=== PATIENT | female | born 1970 | race Caucasian/White ===

== ENCOUNTER 2022-07-20 11:54 | Inpatient (IN) ==
[2022-07-20] MEDS ORDERED: SODIUM CHLORIDE 0.9% 500 ML IV STA (12:28)
[2022-07-20] MEDS ORDERED: ONDANSETRON INJ 2 MG/ML 2 ML VIAL IV STA (12:28)
[2022-07-20] MEDS ORDERED: KETOROLAC TROMETHAMINE 15 MG/ML VIAL IV STA (12:28)
[2022-07-20 12:40] LABS: Basophils # (auto) 0.03 K/uL (0-0.2); Basophils % (auto) 0.3 %; Eosinophils # (auto) 0.29 K/uL (0-0.50); Hematocrit (blood only) 41.7 % (37.0-47.0); Hemoglobin 13.9 g/dl (12.0-16.0); Immature Granulocytes # (auto) 0.04 K/uL (0.01-0.20); Immature Granulocytes % (auto) 0.4 %; Lymphocytes % (auto) 36.2 %; Mean Corpuscular Hgb Conc 33.3 g/dL (32.0-36.0); Mean Corpuscular Volume 90.1 fL (80.0-100.0); Mean Platelet Volume 11.6 fL (9.4-12.4); Monocytes # (auto) 0.63 K/uL (0.11-0.59); Monocytes % (auto) 6.5 %; Neutrophils # (auto) 5.19 K/uL (1.40-6.50); Neutrophils % (auto) 53.6 %; Platelet Count 240 K/uL (130-400); RDW Coefficient of Variation 13.1 % (11.5-14.5); RDW Standard Deviation 42.9 fL (36.4-46.3); Red Blood Count 4.63 M/uL (4.20-5.40); White Blood Count 9.68 K/ul (4.8-10.8)
[2022-07-20 12:55] LABS: Albumin Level 4.5 gm/dl (3.4-5.0); Bilirubin,Total 0.3 mg/dl (0.2-1.0); Calcium 9.4 mg/dl (8.6-10.3); Potassium 3.8 mmol/L (3.5-5.1); Pregnancy Test, Serum Negative (Negative)
[2022-07-20 13:01] LABS: Albumin Globulin Ratio 1.3 (0.9-2); BUN Creatinine Ratio 16.7 (10-20); Creatinine Clr Calc Pharmacy 94.9 ml/min; Est GFR (African American) 113.2 ml/min; Est GFR (Non-African American) 97.7 ml/min; Globulin 3.5 gm/dl (2.5-4.0)
[2022-07-20 13:14] LABS: Appearance Urine Clear (Clear); Bacteria Urine Automated Negative (Negative); Bilirubin Urine Negative (Negative); Blood Urine 3+ (Negative); Color Urine Yellow; Epithelial Cell Urine Auto >30 /lpf (0-5); Glucose Urine UA Negative (Negative); Ketones Urine Negative (Negative); Leukocyte Esterase Urine Negative (Negative); Nitrite Urine Negative (Negative); Protein Urine 1+ (Negative); RBC Urine Automated >30 /hpf (0-4); Specific Gravity Urine 1.027 (1.000-1.030); Urobilinogen Urine Negative (Negative)
--- NOTE | 2022-07-20 14:10 | CT Scan Report ---
ABDOMEN AND PELVIS CT WITHOUT CONTRAST CT DOSE: 868.97 mGy.cm HISTORY: Right flank pain TECHNIQUE: Multiaxial CT images of the abdomen and pelvis were performed without contrast. A dose lo wering technique was utilized adhering to the principles of ALARA. COMPARISON STUDY: None. FINDINGS: The lung bases are clear. No pneumoperitoneum. No pneumatosis. No acute fractures identifie d. Hepatic steatosis. There is a punctate gallstone identified. No gallbladder wall thickening. The u nenhanced spleen, adrenal glands, and pancreas unremarkable. No renal or ureteral stones. No hydronep hrosis. A 2.7 cm hypodense lesion within the left kidney favors a cyst but is incompletely characteri zed on this noncontrast study. No retroperitoneal lymphadenopathy. Normal caliber abdominal aorta. No pelvic free fluid or pelvic lymphadenopathy. Normal bladder. Prior hysterectomy. Suboptimal evaluati on for bowel pathology due to the lack of intravenous and oral contrast. However, there is no definit e bowel wall thickening or obstruction. A few colonic diverticula. No evidence for acute diverticulit is. Normal appendix. IMPRESSION: 1. No renal or ureteral stones. No hydronephrosis. 2. Cholelithiasis. No gallbladder wall thickening. 3. Hepatic steatosis. 4. No definite bowel wall thickening or obstruction. 5. Normal appendix. 6. Hysterectomy. ACT 112: Negative or not required by law. Electronically signed by: Shady Quick M.D. 07/20/2022 2:08 PM
--- NOTE | 2022-07-20 14:21 | Ultrasound Report ---
ABDOMINAL ULTRASOUND, RIGHT UPPER QUADRANT HISTORY: Acute right upper quadrant abdominal pain tenderness. COMPARISON: The study of same day. FINDINGS: Pancreas: The pancreas demonstrates a normal echotexture. Liver: Hepatic steatosis. No hepatic mass identified. The liver measures 18 cm in length. Gallbladder: Cholelithiasis. Sonographic Villalobos sign was unable to be assessed secondary to patient r ecently receiving pain medication. No pericholecystic fluid. Color wall measures within the upper harris its of normal at 3 mm. CBD: 0.5 cm. Right kidney: No hydronephrosis. IMPRESSION: 1. Cholelithiasis with mild gallbladder distention. The gallbladder wall measures within the upper li mits of normal. No pericholecystic fluid is identified and the sonographic Villalobos sign was unable to be assessed. If there is clinical concern for acute cholecystitis, a nuclear medicine hepatobiliary s can may be considered. 2. No biliary ductal dilation. 3. Hepatic steatosis. ACT 112: Negative or not required by law. Electronically signed by: Beau Munoz M.D. 07/20/2022 2:20 PM
[2022-07-20] MEDS ORDERED: ALUMINUM/MAGNESIUM SUSP 30 ML UDC PO PRN (14:50)
[2022-07-20] MEDS ORDERED: ACETAMINOPHEN 325 MG TAB PO PRN (14:50)
[2022-07-20] MEDS ORDERED: POLYETHYLENE (MIRALAX) 17 GM PACK PO PRN (14:50)
[2022-07-20] MEDS ORDERED: ONDANSETRON INJ 2 MG/ML 2 ML VIAL IV PRN ×2 (14:50→18:03)
[2022-07-20] MEDS ORDERED: MAGNESIUM HYDROXIDE SUSP 30 ML UDC PO PRN (14:50)
--- NOTE | 2022-07-20 14:53 | Emergency Department Note ---
Impression & Plan Biliary colic ED Provider Note INFORMANT: Patient ED PROVIDER(S): Lukas Cobb DO CHIEF COMPLAINT: Right upper quadrant abdominal pain, nausea, vomiting PLAN: Disposition: Admission Outpatient prescription management: none Discussion with: I spoke with the hospitalist, who will see the patient for admission/observation and further evaluation and consultation. MEDICAL DECISION MAKING: This is a 51-year-old female who presents to the ED with a chief complaint of right upper quadrant abdominal pain that started last night. She states that it started around 8 PM. She had supper last evening that included ham and potatoes green beans. She states that she has had a little nausea and vomiting. She states that she has vomited a few times. No significant diarrhea. The patient's exam reveals right upper quadrant tenderness. Her vital signs are unremarkable. An ultrasound and CT scan of the abdomen pelvis was done. Ultimately there appears to be cholelithiasis with gallbladder wall that is in the upper limits of normal. No clear cholecystitis. HIDA scan was recommended for further evaluation. CBC and chemistry panel did not show a leukocytosis, a nemia or electrolyte abnormality. Lipase was negative for pancreatitis. I spoke with the hospitalist about the patient. They will see the patient for further inpatient evaluation and care Triage Nursing notes reviewed. Vital Signs: reviewed Prior /Outside records reviewed: none Differential diagnosis: Cholecystitis, biliary colic, pancreatitis, hepatitis, bowel obstruction Diagnostics, as interpreted by me: 12 lead ECG: none Cardiac Monitoring ordered: none Medical decision rules: none Imaging studies: Bladder ultrasound: No cholecystitis. CT scan of the abdomen pelvis: No bowel obstruction. Procedures: none. Critical care: none. HPI: See MDM above. PAST MEDICAL HISTORY: See Below PAST SURGICAL HISTORY: See Below SOCIAL HISTORY: See Below HOME MEDICATIONS: See Below ALLERGIES: See Below VITALS: See Below PHYSICAL EXAMINATION: See MDM for positive findings otherwise unremarkable. CONSTITUTIONAL/VITAL SIGNS: Reviewed GENERAL:done as appropriate INTEGUMENTARY: done as appropriate HEAD: done as appropriate EYES: done as appropriate RESPIRATORY: done as appropriate CARDIOVASCULAR:done as appropriate GI/ABDOMEN:done as appropriate EXTREMITIES: done as appropriate NEUROLOGICAL: done as appropriate PSYCHIATRIC:done as appropriate MUSCULOSKELETAL:done as appropriate TRIAGE NURSING DOCUMENTATION REVIEWED. Past Med/Surg History Social History Smoking Status: Current every day smoker Tobacco Type: Cigarettes Preferred Language: Croatian Feels Safe at Home: Yes Allergies Allergies Allergy/AdvReac Type Severity Reaction Status Date / Time No Known Allergies Allergy Unknown Verified 01/29/03 14:37 Results & Data (ED) Vital Signs Vital Signs - 24 hr 07/20/22 11:58 07/20/22 12:13 07/20/22 12:33 Temperature 36.7 C Temperature Source Temporal Artery Scan Pulse Rate 88 74 Pulse Rate [Apical] 74 Pulse Rhythm Pulse Rhythm [Apical] Regular Pulse Strength [Apical] Normal Respiratory Rate 18 16 Respiratory Effort / Characteristics Non-Labored Spontaneous Non-Labored Spontaneous Respiratory Depth Normal Normal Respiratory Pattern Regular Regular Blood Pressure 141/96 H Blood Pressure [Right Arm] 135/90 Blood Pressure Mean 111 Blood Pressure Mean [Right Arm] 105 Blood Pressure Position Sitting Pulse Oximetry 97 95 Oxygen Delivery Method Room Air Room Air Sepsis Recent Fever Within 48 Hours No Sepsis New/Unexplained Change in Mental Status No Sepsis Action Taken by Nursing No Action Required 07/20/22 12:44 Temperature Temperature Source Pulse Rate 62 Pulse Rate [Apical] Pulse Rhythm Regular Pulse Rhythm [Apical] Pulse Strength [Apical] Respiratory Rate Respiratory Effort / Characteristics Respiratory Depth Respiratory Pattern Blood Pressure Blood Pressure [Right Arm] Blood Pressure Mean Blood Pressure Mean [Right Arm] Blood Pressure Position Pulse Oximetry 96 Oxygen Delivery Method Room Air Sepsis Recent Fever Within 48 Hours Sepsis New/Unexplained Change in Mental Status Sepsis Action Taken by Nursing Laboratory Data 07/20/22 12:07 07/20/22 12:07 Lab Results 07/20/22 07/20/22 07/20/22 Range/Units 12:07 12:07 12:07 WBC 9.68 (4.8-10.8) K/ul RBC 4.63 (4.20-5.40) M/uL Hgb 13.9 (12.0-16.0) g/dl Hct 41.7 (37.0-47.0) % MCV 90.1 (80.0-100.0) fL MCH 30.0 (25.0-34.0) pg MCHC 33.3 (32.0-36.0) g/dL RDW Std Deviation 42.9 (36.4-46.3) fL RDW Coeff of Jen 13.1 (11.5-14.5) % Plt Count 240 (130-400) K/uL MPV 11.6 (9.4-12.4) fL Immature Gran % (Auto) 0.4 % Neut % (Auto) 53.6 % Lymph % (Auto) 36.2 % Bracken % (Auto) 6.5 % Eos % (Auto) 3.0 % Baso % (Auto) 0.3 % Neut # (Auto) 5.19 (1.40-6.50) K/uL Lymph # (Auto) 3.50 H (1.2-3.4) K/uL Bracken # (Auto) 0.63 H (0.11-0.59) K/uL Eos # (Auto) 0.29 (0-0.50) K/uL Baso # (Auto) 0.03 (0-0.2) K/uL Immature Gran # (Auto) 0.04 (0.01-0.20) K/uL Sodium 142 (136-145) mmol/L Potassium 3.8 (3.5-5.1) mmol/L Chloride 107 (98-107) mmol/L Carbon Dioxide 25 (21-32) mmol/L Anion Gap 10 (3-11) BUN 12 (6-23) mg/dl Creatinine 0.72 (0.6-1.2) mg/dl Est Cr Clr Drug Dosing 94.9 ml/min Est GFR ( Amer) 113.2 ml/min Est GFR (Non-Af Amer) 97.7 ml/min BUN/Creatinine Ratio 16.7 (10-20) Glucose 74 (70-99(Fasting)) mg/dl Calcium 9.4 (8.6-10.3) mg/dl Total Bilirubin 0.3 (0.2-1.0) mg/dl AST 15 (13-39) U/L ALT 13 (7-52) U/L Alkaline Phosphatase 72 (34-104) U/L Total Protein 8.0 (6.0-8.3) gm/dl Albumin 4.5 (3.4-5.0) gm/dl Globulin 3.5 (2.5-4.0) gm/dl Albumin/Globulin Ratio 1.3 (0.9-2) Lipase 9 L (11-82) U/L HCG, Qual Negative (Negative) Urine Color Urine Appearance (Clear) Urine pH (4.5-7.5) Ur Specific [place] (1.000-1.030) Urine Protein (Negative) Urine Glucose (UA) (Negative) Urine Ketones (Negative) Urine Blood (Negative) Urine Nitrite (Negative) Urine Bilirubin (Negative) Urine Urobilinogen (Negative) Ur Leukocyte Esterase (Negative) Urine WBC (Auto) (0-5) /hpf Urine RBC (Auto) (0-4) /hpf U Hyaline Cast (Auto) (0-5) /lpf U Epithel Cells (Auto) (0-5) /lpf Urine Bacteria (Auto) (Negative) 07/20/22 Range/Units 12:13 WBC (4.8-10.8) K/ul RBC (4.20-5.40) M/uL Hgb (12.0-16.0) g/dl Hct (37.0-47.0) % MCV (80.0-100.0) fL MCH (25.0-34.0) pg MCHC (32.0-36.0) g/dL RDW Std Deviation (36.4-46.3) fL RDW Coeff of Jen (11.5-14.5) % Plt Count (130-400) K/uL MPV (9.4-12.4) fL Immature Gran % (Auto) % Neut % (Auto) % Lymph % (Auto) % [place] % (Auto) % Eos % (Auto) % Baso % (Auto) % Neut # (Auto) (1.40-6.50) K/uL Lymph # (Auto) (1.2-3.4) K/uL [place] # (Auto) (0.11-0.59) K/uL Eos # (Auto) (0-0.50) K/uL Baso # (Auto) (0-0.2) K/uL Immature Gran # (Auto) (0.01-0.20) K/uL Sodium (136-145) mmol/L Potassium (3.5-5.1) mmol/L Chloride (98-107) mmol/L Carbon Dioxide (21-32) mmol/L Anion Gap (3-11) BUN (6-23) mg/dl Creatinine (0.6-1.2) mg/dl Est Cr Clr Drug Dosing ml/min Est GFR ( Amer) ml/min Est GFR (Non-Af Amer) ml/min BUN/Creatinine Ratio (10-20) Glucose (70-99(Fasting)) mg/dl Calcium (8.6-10.3) mg/dl Total Bilirubin (0.2-1.0) mg/dl AST (13-39) U/L ALT (7-52) U/L Alkaline Phosphatase (34-104) U/L Total Protein (6.0-8.3) gm/dl Albumin (3.4-5.0) gm/dl Globulin (2.5-4.0) gm/dl Albumin/Globulin Ratio (0.9-2) Lipase (11-82) U/L HCG, Qual (Negative) Urine Color Yellow Urine Appearance Clear (Clear) Urine pH 5.0 (4.5-7.5) Ur Specific [place] 1.027 (1.000-1.030) Urine Protein 1+ H (Negative) Urine Glucose (UA) Negative (Negative) Urine Ketones Negative (Negative) Urine Blood 3+ H (Negative) Urine Nitrite Negative (Negative) Urine Bilirubin Negative (Negative) Urine Urobilinogen Negative (Negative) Ur Leukocyte Esterase Negative (Negative) Urine WBC (Auto) 1-5 (0-5) /hpf Urine RBC (Auto) >30 H (0-4) /hpf U Hyaline Cast (Auto) 1-5 (0-5) /lpf U Epithel Cells (Auto) >30 H (0-5) /lpf Urine Bacteria (Auto) Negative (Negative) Administered Medications Discontinued Medications Sodium Chloride (Nss) 500 mls @ 999 mls/hr IV .Q31M STA Stop: 07/20/22 12:58 Last Infusion: 07/20/22 13:23 Dose: 0 mls/hr Documented By: Admin: 07/20/22 12:37 Dose: 999 mls/hr Documented By: MARILY Ketorolac Tromethamine (Ketorolac Tromethamine 15 Mg/Ml Vial) 30 mg IV NOW STA Stop: 07/20/22 12:29 Last Admin: 07/20/22 12:39 Dose: 30 mg Documented By: MARILY Ondansetron HCl (Ondansetron Inj 2 Mg/Ml 2 Ml Vial) 4 mg IV NOW STA Stop: 07/20/22 12:29 Last Admin: 07/20/22 12:39 Dose: 4 mg Documented By: MARILY Imaging Data Radiologist's Impression: Abdomen/Pelvis CT 07/20/22 12:[address] WITHOUT CONTRAST CT DOSE: 868.97 mGy.cm HISTORY: Right flank pain TECHNIQUE: Multiaxial CT images of the abdomen and pelvis were performed without contrast. A dose lowering technique was utilized adhering to the principles of ALARA. COMPARISON STUDY: None. FINDINGS: The lung bases are clear. No pneumoperitoneum. No pneumatosis. No acute fractures identified. Hepatic steatosis. There is a punctate gallstone identified. No gallbladder wall thickening. The unenhanced spleen, adrenal glands, and pancreas unremarkable. No renal or ureteral stones. No hyd ronephrosis. A 2.7 cm hypodense lesion within the left kidney favors a cyst but is incompletely characterized on this noncontrast study. No retroperitoneal lymphadenopathy. Normal caliber abdominal aorta. No pelvic free fluid or pelvic lymphadenopathy. Normal bladder. Prior hysterectomy. Suboptimal evaluation for bowel pathology due to the lack of intravenous and oral contrast. However, there is no definite bowel wall thickening or obstruction. A few colonic diverticula. No evidence for acute diverticulitis. Normal appendix. IMPRESSION: 1. No renal or ureteral stones. No hydronephrosis. 2. Cholelithiasis. No gallbladder wall thickening. 3. Hepatic steatosis. 4. No definite bowel wall thickening or obstruction. 5. Normal appendix. 6. Hysterectomy. ACT 112: Negative or not required by law. Electronically signed by: Shady Quick M.D. 07/20/2022 2:08 PM Gallbladder Ultrasound 07/20/22 12:54 ABDOMINAL ULTRASOUND, RIGHT UPPER QUADRANT HISTORY: Acute right upper quadrant abdominal pain tenderness. COMPARISON: The study of same day. FINDINGS: Pancreas: The pancreas demonstrates a normal echotexture. Liver: Hepatic steatosis. No hepatic mass identified. The liver measures 18 cm i n length. Gallbladder: Cholelithiasis. Sonographic Villalobos sign was unable to be assessed secondary to patient recently receiving pain medication. No pericholecystic fluid. Color wall measures within the upper limits of normal at 3 mm. CBD: 0.5 cm. Right kidney: No hydronephrosis. IMPRESSION: 1. Cholelithiasis with mild gallbladder distention. The gallbladder wall bernardino sures within the upper limits of normal. No pericholecystic fluid is identified and the sonographic Villalobos sign was unable to be assessed. If there is clinical concern for acute cholecystitis, a nuclear medicine hepatobiliary scan may be considered. 2. No biliary ductal dilation. 3. Hepatic steatosis. ACT 112: Negative or not required by law. Electronically signed by: Beau Munoz M.D. 07/20/2022 2:20 PM Discharge Plan Visit Data Chief Complaint: Flank Pain Stated Complaint: FLANK PAIN ED Provider: Lukas Cobb Discharge Problem: Biliary colic Patient Disposition: Being Evaluated by Hospitalist Forms Stand Alone Forms: [facility] Referrals Referrals: Portia Brown PA-C [Primary Care Provider] -
--- NOTE | 2022-07-20 14:58 | History & Physical Report ---
Date of Service July 20, 2022 Assessment & Plan (1) Cholelithiasis: (2) Abdominal pain: (3) Tobacco use: Plan 51 year old with right upper quadrant abdominal pain. Abdominal pelvis CT along with gallbladder ultrasound indicate cholelithiasis with mild gallbladder distention and recommendations for additional imaging including HIDA scan to rule out acute cholecystitis. Cholelithiasis: abdominal pain: Abd pain x24 hours with N/V Abdominal pelvis CT indicates cholelithiasis Gallbladder ultrasound indicates cholelithiasis with mild gallbladder distention with measurement of gallbladder upper limit normal No leukocytosis WBC 9.68 Lipase negative HIDA scan planned for 07/21 at 0800 NPO after MN clear liquids for now; if does not tolerate; make NPO and place on IVF Zofran PRN 500 mL NSB in ED Toradol for pain control Tobacco use: smokes 5-6 cigarettes per day x10 years Educated on smoking cessation Declines Nicotine patch at this time Disposition: PCP: Portia Elliott PA-C ([facility]) CODE STATUS: Full code VTE prophylaxis: Heparin subcu I spent a total of 79 minutes coordinating, documenting, and providing care for this patient excluding time spent in the performance of separately billed services. All of the aforementioned completed while collaborating with the assigned attending physician for a full treatment plan. Please see their addendum for further details. History of Present Illness Chief Complaint: abdominal pain Primary Care Provider: Portia Brown Ms. Downs is a 51 year old female that presented to the [facility] with RUQ pain and N/V that started yesterday. She reports that yesterday she at potato, ham, and green daniel soup and then started to have pain about one hour post prandial. Reports intermittent RUQ pain over the past 6 months, but usually resolves within 30 minutes. Emesis reported to be clear with some bile. Abdominal/Pelvis CT indicates cholelithiasis. Gallbladder ultrasound indicated cholelithiasis with mild gallbladder distention. Gallbladder measuring upper limit normal. Radiology recommended hepatobiliary scan to rule out acute cholecystitis; HIDA scan ordered. Will take place with nuclear med tomorrow 07/21 at 0800. No leukocytosis; WBC 9.68; otherwise labs unremarkable. Hemodynamically stable and had pain relief with Toradol in ED. Past medical history includes: hysterectomy 18 years ago s/p 'tumor' in fallopian tubes, carpal tunnel surgery 2019, 2000. No ill effects from anesthesia. Pt does not take any routine medications. Reports smoking 5-6 cigarettes per day for past 10 years. No alcohol or recreational drug use. Otherwise patient denies headache, dizziness, visual or auditory changes, shortness of breath, chest pain, palpitations, recent falls or trauma. On exam, notable bloating/distension with tenderness RUQ with + R flank radiation. Patient will be admitted for further evaluation and management. Please see A/P for further details. Allergies Allergy/AdvReac Type Severity Reaction Status Date / Time No Known Allergies Allergy Unknown Verified 07/20/22 15:04 Home Medications Medication Instructions Recorded Confirmed Type No Known Home Medications 07/20/22 07/20/22 History Past Med/Surg History Medical History Abdominal pain Cholelithiasis Tobacco use Surgical History (Updated 07/20/22 @ 15:56 by HOLLY Munoz) History of carpal tunnel surgery History of delivery History of hysterectomy Family History (Updated 07/20/22 @ 15:59 by HOLLY Munoz) Mother Cancer breast cancer Diabetes Coronary heart disease Social History Smoking Status: Current every day smoker Tobacco Type: Cigarettes Preferred Language: Salvadorean Feels Safe at Home: Yes Review of Systems Review of Systems: Neuro: (-) Falls, trauma, slurred speech HEENT: (-) AMBROSE, dizziness, dysphagia, visual or auditory changes CV: (-) CP, palpitations, swelling Resp: (-) SOB GI: (-) appetite changes, (+) abdominal tenderness (+) N/V (-) D, bowel changes : (-) urinary changes Skin: (-) rashes Psych: (-) anxiety, depression Physical Exam Physical Exam: Neuro: AAOx4, PERRLA, no aphagia, memory changes, CNII-XII grossly intact HEENT: head normocephalic, moist mucus membranes CV: S1/S2, (-) M/G/R, (-) edema, cap refill < 3 seconds Resp: Lungs CTA in all mathews. On RA GI: Abdomen distended, soft, tender RUQ, Ax4 bowel sounds, (-) CVA tenderness Musculoskeletal: 5/5 B/L UE strength, 5/5 B/L LE strength. No gait disturbance Skin: (-) rashes , (-) erythema. Psych: euthymic mood Results & Data Results & Data Vital Signs (Past 12 Hours) Vital Signs Temp Pulse Pulse Resp BP BP Pulse Ox 07/20/22 12:44 62 96 07/20/22 12:33 74 07/20/22 12:13 74 16 135/90 95 07/20/22 11:58 36.7 C 88 18 141/96 H 97 O2 Del Method 07/20/22 12:44 Room Air 07/20/22 12:33 07/20/22 12:13 Room Air 07/20/22 11:58 Room Air Laboratory Results Short CBC 07/20/22 Range/Units 12:07 WBC 9.68 (4.8-10.8) K/ul Hgb 13.9 (12.0-16.0) g/dl Hct 41.7 (37.0-47.0) % Plt Count 240 (130-400) K/uL BMP 07/20/22 12:07 Sodium 142 Potassium 3.8 Chloride 107 Carbon Dioxide 25 BUN 12 Creatinine 0.72 Glucose 74 Calcium 9.4 Liver Function 07/20/22 Range/Units 12:07 Total Bilirubin 0.3 (0.2-1.0) mg/dl AST 15 (13-39) U/L ALT 13 (7-52) U/L Alkaline Phosphatase 72 (34-104) U/L Albumin 4.5 (3.4-5.0) gm/dl Urine 07/20/22 Range/Units 12:13 Urine Color Yellow Urine Appearance Clear (Clear) Urine pH 5.0 (4.5-7.5) Ur Specific [place] 1.027 (1.000-1.030) Urine Protein 1+ H (Negative) Urine Glucose (UA) Negative (Negative) Diagnostic Findings Abdomen/Pelvis CT 07/20/22 12:[address] WITHOUT CONTRAST CT DOSE: 868.97 mGy.cm HISTORY: Right flank pain TECHNIQUE: Multiaxial CT images of the abdomen and pelvis were performed without contrast. A dose lowering technique was utilized adhering to the principles of ALARA. COMPARISON STUDY: None. FINDINGS: The lung bases are clear. No pneumoperitoneum. No pneumatosis. No acute fractures identified. Hepatic steatosis. There is a punctate gallstone identified. No gallbladder wall thickening. The unenhanced spleen, adrenal glands, and pancreas unremarkable. No renal or ureteral stones. No hydronephrosis. A 2.7 cm hypodense lesion within the left kidney favors a cyst but is incompletely characterized on this noncontrast study. No retroperitoneal lymphadenopathy. Normal caliber abdominal aorta. No pelvic free fluid or pelvic lymphadenopathy. Normal bladder. Prior hysterectomy. Suboptimal evaluation for bowel pathology due to the lack of intravenous and oral contrast. However, there is no definite bowel wall thickening or obstruction. A few colonic diverticula. No evidence for acute diverticulitis. Normal appendix. IMPRESSION: 1. No renal or ureteral stones. No hydronephrosis. 2. Cholelithiasis. No gallbladder wall thickening. 3. Hepatic steatosis. 4. No definite bowel wall thickening or obstruction. 5. Normal appendix. 6. Hysterectomy. ACT 112: Negative or not required by law. Electronically signed by: Shady Quick M.D. 07/20/2022 2:08 PM Gallbladder Ultrasound 07/20/22 12:54 ABDOMINAL ULTRASOUND, RIGHT UPPER QUADRANT HISTORY: Acute right upper quadrant abdominal pain tenderness. COMPARISON: The study of same day. FINDINGS: Pancreas: The pancreas demonstrates a normal echotexture. Liver: Hepatic steatosis. No hepatic mass identified. The liver measures 18 cm in length. Gallbladder: Cholelithiasis. Sonographic Villalobos sign was unable to be assessed secondary to patient recently receiving pain medication. No pericholecystic fluid. Color wall measures within the upper limits of normal at 3 mm. CBD: 0.5 cm. Right kidney: No hydronephrosis. IMPRESSION: 1. Cholelithiasis with mild gallbladder distention. The gallbladder wall measure s within the upper limits of normal. No pericholecystic fluid is identified and the sonographic Villalobos sign was unable to be assessed. If there is clinical concern for acute cholecystitis, a nuclear medicine hepatobiliary scan may be considered. 2. No biliary ductal dilation. 3. Hepatic steatosis. ACT 112: Negative or not required by law. Electronically signed by: Beau Munoz M.D. 07/20/2022 2:20 PM Code Status & VTE Plan Code Status Full code in the event of cardiac or respiratory arrest VTE Prophylaxis Plan VTE Prophylaxis will be ordered: Yes Supervising Physician Co-Signing Physician Notes Patient was seen and examined independently at bedside. Chart reviewed. Case discussed with Joyce BARRERA and agree with the documentation above with regards to HPI, exam and A/P. In summary, this is a 51 year old female who is being admitted for symptomatic cholelithiasis/biliary colic. No evidence of acute cholecystitis on US abd or CT A/P but still with RUQ pain. RUQ tender on exam otherwise abd exam unremarkable. AAO, chest clear, heart sounds normal, no edema. No fever or leucocytosis. LFTs normal. Lipase normal. Non toxic. Clinically stable. Agree with npo, antiemetics, analgesics, HIDA scan, surgery evaluation. No indication for antibiotics at this point. Rest as per the note above.
[2022-07-20] MEDS ORDERED: KETOROLAC TROMETHAMINE 15 MG/ML VIAL IV PRN (16:01)
--- NOTE | 2022-07-20 17:47 | History & Physical Report ---
Date of Service July 20, 2022 Assessment & Plan (1) Acute cholecystitis: Plan: Gallstones with persistent right upper quadrant pain for over 24 hours. She has a distended gallbladder as well. Clinically consistent with cholecystitis. She has not eaten since last night. We discussed the risks of laparoscopic cholecystectomy which include bleeding, infection, injury to another organ, injury to a bile duct or bile leaks, DVT, PE, WI, CVA etc. After discussing her options we will proceed this evening with laparoscopic cholecystectomy. I answered all of her questions and she agrees to the plan. History of Present Illness Primary Care Provider: Portia Brown 51-year-old female with a 6-month history of right upper quadrant pain worse after eating. Last night after eating it became more severe than normal. She presents today with persistent pain. Ultrasound shows gallstones as well as distended gallbladder. Allergies Allergy/AdvReac Type Severity Reaction Status Date / Time No Known Allergies Allergy Unknown Verified 07/20/22 15:04 Home Medications Medication Instructions Recorded Confirmed Type No Known Home Medications 07/20/22 07/20/22 History Past Med/Surg History Medical History Abdominal pain Cholelithiasis Tobacco use Surgical History (Updated 07/20/22 @ 15:56 by HOLLY Munoz) History of carpal tunnel surgery History of delivery History of hysterectomy Family History (Updated 07/20/22 @ 15:59 by HOLLY Munoz) Mother Cancer breast cancer Diabetes Coronary heart disease Social History Smoking Status: Current every day smoker Tobacco Type: Cigarettes Preferred Language: Vietnamese Feels Safe at Home: Yes Review of Systems All systems reviewed & are unremarkable except as noted in HPI & below Physical Exam Constitutional: WD/WN, vitals as above no acute distress and not ill appearing Eyes: PERRL, conjunctivae normal, anicteric sclerae EOM intact bilaterally ENMT: external ear and nose normal, oropharynx normal Ears: no hearing impairment Neck: trachea midline, no thyromegaly Respiratory: normal respiratory effort; no respiratory distress and does not use accessory muscles Cardiovascular: Rate/Rhythm: regular rate and regular rhythm Gastrointestinal (Abdomen): Soft. Positive right upper quadrant tenderness. No peritonitis. Skin: no rashes, warm and dry Psychiatric: Orientation: alert, oriented x 3 and cooperative Results & Data Vital Signs (Past 12 Hours) Vital Signs Temp Pulse Pulse Resp BP BP Pulse Ox 04/20/23 16:37 63 07/20/22 16:32 36.9 C 66 18 145/62 H 95 07/20/22 12:44 62 96 07/20/22 12:33 74 07/20/22 12:13 74 16 135/90 95 07/20/22 11:58 36.7 C 88 18 141/96 H 97 O2 Del Method 07/20/22 16:37 07/20/22 16:32 Room Air 07/20/22 12:44 Room Air 07/20/22 12:33 07/20/22 12:13 Room Air 07/20/22 11:58 Room Air Code Status & VTE Plan VTE Prophylaxis Plan VTE Prophylaxis will be ordered: Yes
[2022-07-20] MEDS ORDERED: BUPIVACAINE/EPINEPHRINE 0.5% MPF 1:200,000 30 ML VIAL ONE (17:59)
[2022-07-20] MEDS ORDERED: ALBUT/IPRATROP 3MG/0.5MG NEB 3 ML VIAL NEB STA (18:01)
--- NOTE | 2022-07-20 18:01 | Anesthesiology Consultation ---
Date of Service July 20, 2022 Assessment & Plan Chart Review Chart Review: Acceptable Risk for Surgery Consults Requested none ASA ASA2 Proposed Anesthesia Anesthesia Type: General Risk / Benefits Reviewed With: PT / POA / Parent / Guardian, Accepts Plan and Informed Consent Obtained Additional Comments: preop duoneb History Surgery Operation Date: 07/20/22 19:00 Proposed Procedures p Laparoscopic Cholecystectomy - Basim Chan, DO Height/Weight Height: 5 ft 2 in Weight: 85.7 kg Allergies Allergy/AdvReac Type Severity Reaction Status Date / Time No Known Allergies Allergy Unknown Verified 07/20/22 15:04 Medications Home Medications Medication Instructions Recorded Confirmed Last Taken No Known Home Medications 07/20/22 07/20/22 Unknown Active Medications Generic Name Dose Route Start Last Admin Trade Name Freq PRN Reason Stop Dose Admin Acetaminophen 650 mg 07/20/22 14:50 07/20/22 16:40 Acetaminophen 325 Mg Tab PO 08/19/22 14:49 650 mg Q4H PRN Administration pain/fever NPO Date Last Intake of Fluids: 07/20/22 Time Last Intake of Fluids: 03:00 Date Last Intake of Solids: 07/19/22 Time Last Intake of Solids: 16:00 Past Medical History Medical History (Updated 07/20/22 @ 18:07 by Marilyn Garcia DO) Abdominal pain Cholelithiasis Obesity Tobacco use URI (upper respiratory infection) recently uri resolved, still coughing Exercise / Class Metabolic Activity II 4-5 Yardwork/Stairs/Walk up hill Past Family History Family History Mother Cancer breast cancer Diabetes Coronary heart disease Past Surgical History Surgical History History of carpal tunnel surgery History of delivery History of hysterectomy Past Anesthesia History No Hx of Anesthesia Complications and No Family Hx of Anesthesia Complications History of PONV No Hx of PONV and No Hx of Motion Sickness Social History Smoking Status: Current every day smoker Physical Exam Vital Signs Last Vital Signs Temp 36.9 C 07/20/22 16:32 Pulse 63 07/20/22 16:37 Resp 18 07/20/22 16:32 BP 145/62 H 07/20/22 16:32 Pulse Ox 95 07/20/22 16:32 O2 Del Method Room Air 07/20/22 16:32 ENMT Mouth: + dentition abnormality (all broken teeth upper except 1. most broken on bottom, none tongue loose), + poor dentition and + chipped teeth; no TMJ abnormality Thyromental Distance: > or= 3.5 Finger Breadths Mallampati Class: III Neck normal visual inspection, trachea midline and + thick neck; neck extension not limited Respiratory normal respiratory effort Auscultation: + diminished lung sounds and + wheezes Cardiovascular Rate/Rhythm: regular rate and regular rhythm Heart Sounds: no murmur Musculoskeletal Spine: normal cervical ROM Extremities: full ROM of extremities Neurologic moves all extremities Psychiatric Orientation: alert and oriented x 3 Testing Laboratory Results 07/20/22 12:07 07/20/22 12:07 Urine Color Yellow 07/20/22 12:13 Urine Appearance Clear (Clear) 07/20/22 12:13 Urine pH 5.0 (4.5-7.5) 07/20/22 12:13 Ur Specific [place] 1.027 (1.000-1.030) 07/20/22 12:13 Urine Protein 1+ (Negative) H 07/20/22 12:13 Urine Glucose (UA) Negative (Negative) 07/20/22 12:13 Urine Ketones Negative (Negative) 07/20/22 12:13 Urine Nitrite Negative (Negative) 07/20/22 12:13 Ur Leukocyte Esterase Negative (Negative) 07/20/22 12:13 Urine WBC (Auto) 1-5 /hpf (0-5) 07/20/22 12:13 Urine RBC (Auto) >30 /hpf (0-4) H 07/20/22 12:13 U Hyaline Cast (Auto) 1-5 /lpf (0-5) 07/20/22 12:13 U Epithel Cells (Auto) >30 /lpf (0-5) H 07/20/22 12:13 Urine Bacteria (Auto) Negative (Negative) 07/20/22 12:13
[2022-07-20] MEDS ORDERED: ALBUT/IPRATROP 3MG/0.5MG NEB 3 ML VIAL INH PRN (18:03)
[2022-07-20] MEDS ORDERED: ATROPINE SULFATE 0.1 MG/ML 10ML SYR IV PRN (18:03)
[2022-07-20] MEDS ORDERED: ePHEDrine sulfate 50 MG/ML AMP IV PRN (18:03)
[2022-07-20] MEDS ORDERED: fentaNYL citrate PF 100 MCG/2 ML VIAL IV PRN (18:03)
[2022-07-20] MEDS ORDERED: MoRPHine SULFATE 10 MG/ML CARP/VIAL IV PRN (18:03)
[2022-07-20] MEDS ORDERED: MEPERIDINE HCL 25 MG/ML CARP/VIAL IV PRN (18:03)
[2022-07-20] MEDS ORDERED: fentaNYL citrate PF 100 MCG/2 ML VIAL ONE ×2 (18:11→18:57)
[2022-07-20] MEDS ORDERED: MIDAZOLAM HCL 1 MG/ML 2ML VIAL ONE (18:11)
[2022-07-20] MEDS ORDERED: ceFAZolin 2,000 MG/15 ML IV PUSH IV ONE (18:19)
[2022-07-20] MEDS ORDERED: ceFAZolin 2000MG 2,000 MG/15 ML SYR IV ONE (18:27)
[2022-07-20] MEDS ORDERED: PROPOFOL IV EMULSION 10 MG/ML 100 ML VIAL IV ONE (18:46)
[2022-07-20] MEDS ORDERED: LIDOCAINE 2% MPF LOCAL 5 ML VIAL ONE (18:46)
[2022-07-20] MEDS ORDERED: DEXAMETHASONE SOD INJ 4 MG/ML VIAL ONE (18:46)
[2022-07-20] MEDS ORDERED: GLYCOPYRROLATE 0.2 MG/ML VIAL ONE ×2 (18:46→19:10)
[2022-07-20] MEDS ORDERED: ONDANSETRON INJ 2 MG/ML 2 ML VIAL ONE (18:46)
[2022-07-20] MEDS ORDERED: NEOSTIGMINE METHYLSULFATE 1 MG/ML 10ML VIAL ONE (19:10)
[2022-07-20] MEDS ORDERED: SUGAMMADEX SODIUM 200 MG/2 ML VIAL IV ONE (19:15)
[2022-07-20] MEDS ORDERED: ALBUTEROL 0.083% NEBU SOLN 3 ML VIAL ONE (19:28)
[2022-07-20] MEDS ORDERED: ALBUTEROL 0.083% NEBU SOLN 3 ML VIAL NEB STA (19:29)
--- NOTE | 2022-07-20 19:38 | Operative Report ---
PG Post Operative Report Pre & Post Diagnosis Operation Date: 07/20/22 19:00 Pre-Op Diagnosis: Acute cholecystitis Post-Op Diagnosis: Acute cholecystitis I identified the patient and participated in the time-out.: Yes Procedure Operation Date: 07/20/22 19:00 Actual Procedures p Laparoscopic Cholecystectomy(Not Applicable) - Basim Chan DO Surgeon Basim Chan DO Ethanol Operations Manager n/a Estimated Blood Loss 10 Findings Consistent with Post-Op Diagnosis Specimens gallbladder Description of Procedure After informed consent was obtained the patient was taken to the operating room and placed in the supine position. After successful intubation the abdomen was sterilely prepped and draped in usual fashion. A periumbilical incision was made with an 11 blade scalpel and carried down through the soft tissue using electrocautery. The anterior rectus fascia was opened using electrocautery and 2 #0 Vicryl stay sutures were placed. The peritoneum was elevated with hemostats and incised under direct vision using Metzenbaum scissors. A finger sweep was performed and a 12 mm Ott trocar was placed. The abdomen was insuf flated to 18 mmHg. The laparoscope was inserted and the abdomen was examined in 360. No gross abnormalities were identified. A subxiphoid 5 mm port and 2 right upper quadrant 5 mm ports were placed under direct vision. The patient was placed in a reverse Trendelenburg position and slightly airplaned to the left. The gallbladder was acutely inflamed. The gallbladder was grasped and elevated superiorly and laterally. A [place] dissector was used to take down adhesions around the neck of the gallbladder. The cystic duct was identified and skeletonized. It was clipped twice proximally and once distally and transected using a laparoscopic scissor. In similar fashion the cystic artery was identified and skeletonized clipped and divided. The gallbladder was removed from the gallbladder fossa with electrocautery. It was placed into an Endo Catch bag. Thorough irrigation was performed. At the end of the procedure there was adequate hemostasis and no evidence of any bile leaks. A final look around the abdomen showed no other abnormalities. The gallbladder and trochars were all removed and the abdomen was desufflated. The fascia of the camera port was closed using 0 Vicryl in a [id number] fashion. All the wounds were irrigated and closed using 4-0 Monocryl. Marcaine was injected around them for postoperative analgesia and skin glue used as a dressing. The patient was awaken extubated and transferred to recovery in stable condition. I attest to the content of the Intraoperative Record and any orders documented therein. Any exceptions are noted below.
--- NOTE | 2022-07-20 19:58 | Anesthesiology Progress Note ---
Date of Service July 20, 2022 Anesthesia Post Procedure Vital Signs Vital Signs: Temp Pulse Pulse Resp BP BP Pulse Ox 07/20/22 19:50 36.9 C 87 20 148/71 H 100 07/20/22 19:40 96 H 20 110/63 100 07/20/22 19:32 35.1 C L 104 H 16 145/75 H 100 07/20/22 17:52 36.5 C 57 L 20 149/84 H 97 07/20/22 18:11 58 L 17 98 07/20/22 16:37 63 07/20/22 16:32 36.9 C 66 18 145/62 H 95 07/20/22 12:44 62 96 07/20/22 12:33 74 07/20/22 12:13 74 16 135/90 95 07/20/22 11:58 36.7 C 88 18 141/96 H 97 O2 Del Method O2 Flow Rate FiO2 07/20/22 19:50 Nasal Cannula 2 07/20/22 19:40 Nasal Cannula 2 07/20/22 19:32 Oxymask 6 07/20/22 17:52 Room Air 07/20/22 18:11 Room Air 21 07/20/22 16:37 07/20/22 16:32 Room Air 07/20/22 12:44 Room Air 07/20/22 12:33 07/20/22 12:13 Room Air 07/20/22 11:58 Room Air Pain Intensity Right Flank: Pain Intensity: 6 Transfer of Care Handoff Completed per policy Notes Mental Status: alert / awake / arousable Patient Amnestic to Procedure: Yes Nausea / Vomiting: adequately controlled Pain: adequately controlled Airway Patency, RR, SpO2: stable & adequate BP & HR: stable & adequate Hydration State: stable & adequate Anesthetic Complications: no major complications apparent and Pt Satisfied with anesthetic care
[2022-07-20] MEDS ORDERED: ACETAMINOPHEN 1,000 MG/100 ML VIAL IV PRN (20:11)
[2022-07-20] MEDS ORDERED: MoRPHine SULFATE 4 MG/ML 1 ML CARP\\VIAL IV PRN (20:11)
[2022-07-20] MEDS ORDERED: ALBUT/IPRATROP 3MG/0.5MG NEB 3 ML VIAL NEB PRN (20:11)
[2022-07-20] MEDS: LACTATED RINGER'S 1,000 ML IV SCH (20:26)
[2022-07-21 05:49] LABS: Basophils # (auto) 0.01 K/uL (0-0.2); Basophils % (auto) 0.1 %; Eosinophils # (auto) 0.01 K/uL (0-0.50); Eosinophils % (auto) 0.1 %; Hematocrit (blood only) 38.4 % (37.0-47.0); Hemoglobin 12.9 g/dl (12.0-16.0); Immature Granulocytes # (auto) 0.04 K/uL (0.01-0.20); Immature Granulocytes % (auto) 0.4 %; Lymphocytes # (auto) 0.99 K/uL (1.2-3.4); Lymphocytes % (auto) 9.4 %; Mean Corpuscular Hgb Conc 33.6 g/dL (32.0-36.0); Mean Corpuscular Volume 89.3 fL (80.0-100.0); Monocytes # (auto) 0.63 K/uL (0.11-0.59); Platelet Count 221 K/uL (130-400); RDW Coefficient of Variation 12.9 % (11.5-14.5); RDW Standard Deviation 42.3 fL (36.4-46.3); White Blood Count 10.58 K/ul (4.8-10.8)
[2022-07-21 05:59] LABS: Albumin Globulin Ratio 1.3 (0.9-2); Albumin Level 3.7 gm/dl (3.4-5.0); BUN Creatinine Ratio 16.4 (10-20); Bilirubin,Total 0.3 mg/dl (0.2-1.0); Calcium 8.7 mg/dl (8.6-10.3); Creatinine Clr Calc Pharmacy 104.5 ml/min; Est GFR (African American) 118.8 ml/min; Est GFR (Non-African American) 102.5 ml/min; Globulin 2.8 gm/dl (2.5-4.0); Potassium 4.3 mmol/L (3.5-5.1); Total Protein 6.5 gm/dl (6.0-8.3)
--- NOTE | 2022-07-21 07:06 | Surgery Progress Note ---
Date of Service July 21, 2022 Assessment & Plan (1) Acute cholecystitis: Plan: Doing well postoperative day #1. Okay with my standpoint for discharge. Follow-up with me in about a week. Admission and Anticipated Discharge Date Admission Date: July 20, 2022 Subjective Patient seen. "I feel much much better" Physical Exam Physical Exam: Alert. No acute distress. Abdomen is soft with expected incisional tenderness. Results & Data Vital Signs (Past 12 Hours) Vital Signs Temp Pulse Pulse Resp BP BP Pulse Ox 07/21/22 03:35 36.6 C 55 L 15 136/74 95 07/20/22 23:24 36.6 C 69 16 133/84 96 07/20/22 22:31 36.6 C 72 16 156/86 H 97 07/20/22 21:36 36.5 C 70 15 138/83 97 07/20/22 20:05 36.4 C L 84 16 162/91 H 95 07/20/22 20:05 07/20/22 20:35 36.6 C 74 15 127/82 95 07/20/22 20:00 85 18 141/89 H 100 07/20/22 19:50 36.9 C 87 20 148/71 H 100 07/20/22 19:40 96 H 20 110/63 100 07/20/22 19:32 35.1 C L 104 H 16 145/75 H 100 Pulse Ox O2 Del Method O2 Del Method O2 Flow Rate 07/21/22 03:35 Room Air 07/20/22 23:24 Room Air 07/20/22 22:31 Room Air 07/20/22 21:36 Room Air 07/20/22 20:05 Room Air 07/20/22 20:05 95 Room Air 07/20/22 20:35 Room Air 07/20/22 20:00 Nasal Cannula 2 07/20/22 19:50 Nasal Cannula 2 07/20/22 19:40 Nasal Cannula 2 07/20/22 19:32 Oxymask 6 PG Care Time/CCT Total # of Minutes Spent Total Time Spent with Patient: Total time spent is greater than 50% in coordination of care (as documented) at patient's floor/unit and/or counseling patient: Coding Level of Care Code 17525 Post Operative Follow-Up Diagnoses Acute cholecystitis K81.0
[2022-07-21] MEDS ORDERED: oxyCODONE HCL IR 5 MG TAB (IMMEDIATE RELEASE) PO PRN ×2 (07:36)
[2022-07-21] MEDS: LACTATED RINGER'S 1,000 ML IV SCH (08:46)
--- NOTE | 2022-07-21 10:54 | Discharge Summary ---
Date of Service July 21, 2022 Admission HPI Per Admitting Provider 51-year-old female with a 6-month history of right upper quadrant pain worse after eating. Last night after eating it became more severe than normal. She presents today with persistent pain. Ultrasound shows gallstones as well as distended gallbladder. Admission Exam Per Admitting Provider Physical Exam: Neuro: AAOx4, PERRLA, no aphagia, memory changes, CNII-XII grossly intact HEENT: head normocephalic, moist mucus membranes CV: S1/S2, (-) M/G/R, (-) edema, cap refill < 3 seconds Resp: Lungs CTA in all mathews. On RA GI: Abdomen distended, soft, tender RUQ, Ax4 bowel sounds, (-) CVA tenderness Musculoskeletal: 5/5 B/L UE strength, 5/5 B/L LE strength. No gait disturbance Skin: (-) rashes , (-) erythema. Psych: euthymic mood Principal Diagnosis Acute Cholecystis Discharge Exam General: Alert, oriented. No acute distress Skin: healing surgical scars noted on abdomen Psych: Appropriate mood and affect Neuro: No gross deficits HEENT: NC/AT CV: RRR, Normal s1, s2. No murmurs appreciated Resp: Breath sounds clear bilaterally, no increased effort of breathing. No crackles/rhonchi/rales. Abdomen: Soft, tender in lower quadrants, nondistended. No guarding. No organomegaly appreciated. Extremities: No edema in lower extremities bilaterally. Discharge Data Allergies Allergy/AdvReac Type Severity Reaction Status Date / Time No Known Allergies Allergy Unknown Verified 07/20/22 15:04 Consultations 07/20/22 14:49 ED Decision to Admit Stat 07/20/22 15:51 Consult General Surgery Routine Procedures Performed Operation Date: 07/20/22 19:00 Actual Procedures p Laparoscopic Cholecystectomy(Not Applicable) - Basim Chan, Ordered Studies 07/20/22 12:28 CT abd pelvis wo con Stat 07/20/22 12:54 US gallbladder Stat Hospital Course (1) Cholelithiasis: (2) Abdominal pain: (3) Tobacco use: Plan 51 year old female admitted for cholecystectomy with General surgery after presenting with abdominal pain, N/V. Abdominal/pelvis CT along with gallbladder ultrasound showed cholelithiasis with mild gallbladder distention. Had laparoscopic cholecystectomy with General Surgery on 07/20/22. Discharged on POD #1 as pt's symptoms had resolved post-op, was tolerating a regular diet, passing flatus with a small bowel movement the day of discharge. Recommending close follow up with General Surgery after discharge as well as PT as scheduled. Close PCP followup as well. Total Time Total Time Spent Total Time Spent (In Minutes): Greater than 30 minutes Discharge Plan Discharge Items Patient Disposition: Home - Self-Care Reason For Visit: ABDOMINAL PAIN Discharge Diagnosis: laparoscopic cholecystectomy Activity: Per Instructions section Lifting: No more than 10 pounds Bathing Comment: may shower; no soaking in tubs/pools Exercise/Sports: Wait until after follow-up appointment Driving/Machine Use: no driving while taking any narcotics for pain Non-emergency contact: Primary Care Provider and Surgeon Call non-emergency contact if: you have any medication questions, your symptoms worsen, your pain is not controlled, your pain is concerning for you, you have a fever, your wound has increased redness, your wound has increased drainage and your wound pain has increased Follow-up/Referrals: Basim Chan DO [Surgeon] - 08/04/22 9:45 am (Please call to schedule follow up in clinic within 2 weeks ) Portia Brown PA-C [Primary Care Provider] - 07/25/22 10:30 am Diet: Regular Addtl Attending Provider Instructions: Pending Studies at Discharge: Yes Studies:: surgical pathology Stand-Alone Forms: My [facility], Pain - Opioid Pain Management, Smoking Cessation Medications and DC Order Prescriptions: New oxycodone-acetaminophen [Percocet] 5-325 mg tablet 1 - 2 tab PO .q4-6h PRN (Reason: pain, for initial therapy, max 6 tabs per day) Qty: 15 0RF Discharge Orders: Discharge Order (Routine); Ordered 07/21/22 Ordered By: Aleksandra Cheek/Other Patient Handouts: DVT Post Op Prevention, Cholecystectomy Admission Data Admit Date/Time: 07/20/22 17:51 Attending Provider: Aleksandra Bolden Admit Provider: Beni Virk Primary Care Provider: Portia Brown Other Providers: Beni Virk ; Basim Chan
== END 2022-07-21 12:53 | disposition home or self-care (01) | DRG 419 ==
LOC: ED 11:54 → OR 17:50 → 3W 17:51 → SUATTDRO 17:51